=== PATIENT | male | born 1955 | race African-American/Black ===

== ENCOUNTER 2016-07-08 04:10 | Inpatient (IN) | payer OTHER ==
[~2016-07-08] VITALS: Ht 193 cm; Wt 117.7 kg
[~2016-07-08 04:10] MED LIST: ALD25 PO; ASPIR LOW81 MG PO; CLEOCIN HCL300 MG PO; COLACE100 MG PO; COREG12.5 MG PO; ECO81 PO; ENALAPRIL MALE2.5 MG PO; FLAGYL500 MG PO; FUROSEMIDE40 MG PO; LASIX40 MG PO; LEVAQUIN750 MG PO; LISINOPRIL10 MG PO; LOT1C TOP; METFORMIN HCL500 MG PO; MOTRIN800 MG PO; NORCO1 TA1 PO; OMEPRAZOLE DR20 M1 PO; SIMVASTATIN40 M1 PO; XARELTO20 M1 PO; ZOC10 PO
[2016-07-08 07:08] LABS: BASOPHIL % 0.3 % (0-2)
[2016-07-08 07:10] LABS: RED CELL DISTRIBUTION WIDTH 15.6 % (11.5-14.5)
[2016-07-08 07:11] LABS: PLATELET COUNT 87 x10^3mcL (130-400)
[2016-07-08 07:18] LABS: CALCIUM 8.7 mg/dL (8.5-10.1); CARBON DIOXIDE 26.2 mmol/L (21-32); CHLORIDE SERUM 107 mmol/L (98-107); CREATININE SERUM 1.3 mg/dL (0.7-1.3); GFR1 > 60 mL/min; GLUCOSE SERUM 173 mg/dL (74-106); POTASSIUM SERUM 4.4 mmol/L (3.5-5.1); SODIUM SERUM 141 mmol/L (136-145)
[2016-07-08 07:22] LABS: ALBUMIN 3.6 g/dL (3.4-5.0); ALKALINE PHOSPHATASE 51 U/L (46-116); ALT/SGPT 28 U/L (16-63); AST/SGOT 56 U/L (15-37); BILIRUBIN TOTAL 1.5 mg/dL (0.20-1.00); TOTAL PROTEIN, SERUM 7.4 g/dL (6.4-8.2)
[2016-07-08 08:21] LABS: CHOLESTEROL/HDL RATIO 2.6
[2016-07-08 08:22] VITALS: BP 113/82
[2016-07-08 08:22] LABS: T3 TOTAL 1.01 ng/mL
[2016-07-08 08:27] LABS: FREE T4 1.1 ng/dL (0.76-1.46); FREE THYROXINE INDEX 2.8 ug/dL (1.4-4.5); T4(THYROXINE) 8.1 ug/dL (4.7-13.3)
[2016-07-08 10:51] LABS: microscopic required? YES; urine erythrocyte NEGATIVE (NEGATIVE)
[2016-07-08 11:09] LABS: AMPHETAMINE QUAL UR NONE DETECTED (NEG <=1000)
[2016-07-08 17:56] VITALS: BP 129/89
[2016-07-08 21:46] VITALS: BP 114/82
[2016-07-09 05:48] VITALS: BP 110/73
[2016-07-09 07:16] LABS: BASOPHIL % 0.3 % (0-2)
[2016-07-09 07:18] LABS: PLATELET COUNT 80 x10^3mcL (130-400); RED CELL DISTRIBUTION WIDTH 15.9 % (11.5-14.5)
[2016-07-09 07:33] LABS: CALCIUM 8.6 mg/dL (8.5-10.1); CREATININE SERUM 1.6 mg/dL (0.7-1.3); MAGNESIUM 2.3 mg/dL (1.8-2.4); PHOSPHOROUS 3.5 mg/dL (2.5-4.9)
[2016-07-09 09:38] VITALS: BP 95/57
[2016-07-09 15:03] VITALS: BP 83/43
[2016-07-09 17:40] VITALS: BP 102/65
[2016-07-09 21:19] VITALS: BP 107/76
[2016-07-10] VITALS (7 sets, daily range): BP systolic 95–111; BP diastolic 61–83
[2016-07-10 11:03] LABS: BASOPHIL % 0.4 % (0-2)
[2016-07-10 11:12] LABS: CALCIUM 8.8 mg/dL (8.5-10.1); CARBON DIOXIDE 31.1 mmol/L (21-32); CREATININE SERUM 1.9 mg/dL (0.7-1.3); POTASSIUM SERUM 4.6 mmol/L (3.5-5.1)
[2016-07-10 11:21] LABS: PLATELET COUNT 81 x10^3mcL (130-400); RED CELL DISTRIBUTION WIDTH 15.9 % (11.5-14.5)
[2016-07-11 05:40] VITALS: BP 113/79
[2016-07-11 06:55] LABS: BASOPHIL % 0.4 % (0-2); PLATELET COUNT 79 x10^3mcL (130-400); RED CELL DISTRIBUTION WIDTH 15.5 % (11.5-14.5)
[2016-07-11 07:17] LABS: CALCIUM 8.7 mg/dL (8.5-10.1); CARBON DIOXIDE 29.1 mmol/L (21-32); CREATININE SERUM 1.9 mg/dL (0.7-1.3); POTASSIUM SERUM 5.2 mmol/L (3.5-5.1)
[2016-07-11 09:09] VITALS: BP 108/73
[2016-07-11 09:53] VITALS: BP 113/79
[2016-07-11 12:46] LABS: CALCIUM 8.5 mg/dL (8.5-10.1); CARBON DIOXIDE 26.9 mmol/L (21-32); CREATININE SERUM 1.8 mg/dL (0.7-1.3); POTASSIUM SERUM 4.7 mmol/L (3.5-5.1)
[2016-07-11 14:47] VITALS: BP 93/57
[2016-07-11 17:21] VITALS: BP 112/71
[2016-07-11 21:13] VITALS: BP 97/60
[2016-07-12 05:26] VITALS: BP 97/46
[2016-07-12 06:07] LABS: BASOPHIL % 0.5 % (0-2)
[2016-07-12 06:33] LABS: CALCIUM 8.7 mg/dL (8.5-10.1); CARBON DIOXIDE 27.3 mmol/L (21-32); CREATININE SERUM 1.8 mg/dL (0.7-1.3); POTASSIUM SERUM 4.4 mmol/L (3.5-5.1)
[2016-07-12 06:35] LABS: PLATELET COUNT 78 x10^3mcL (130-400); RED CELL DISTRIBUTION WIDTH 15.1 % (11.5-14.5)
[2016-07-12 08:31] VITALS: BP 109/71
[2016-07-12 14:47] VITALS: BP 121/81
[2016-07-12 17:40] VITALS: BP 122/76
[2016-07-12 20:57] VITALS: BP 107/62
[2016-07-13 05:19] VITALS: BP 104/66
[2016-07-13 06:28] LABS: CALCIUM 8.9 mg/dL (8.5-10.1); CARBON DIOXIDE 29.5 mmol/L (21-32); CREATININE SERUM 1.7 mg/dL (0.7-1.3); POTASSIUM SERUM 4.9 mmol/L (3.5-5.1)
[2016-07-13 06:50] LABS: BASOPHIL % 0.7 % (0-2); PLATELET COUNT 80 x10^3mcL (130-400); RED CELL DISTRIBUTION WIDTH 15.4 % (11.5-14.5)
[2016-07-13 09:32] VITALS: BP 105/69
[2016-07-13] MEDS ORDERED: XARELTO20 M1 PO (12:05)
[2016-07-13] MEDS ORDERED: LASIX40 MG PO (12:07)
[2016-07-13] MEDS ORDERED: ALD25 PO (12:07)
[2016-07-13] MEDS ORDERED: CLINDAMYCIN HC300 MG PO (12:12)
[2016-07-13] MEDS ORDERED: LEVAQUIN750 MG PO (12:12)
[2016-07-13] MEDS ORDERED: LAC PO (12:12)
[2016-07-13] MEDS ORDERED: IBUPROFEN800 MG PO (12:18)
[2016-07-13] MEDS ORDERED: OMEPRAZOLE20 M4 PO (12:18)
[2016-07-13] MEDS ORDERED: GLU5 PO (12:28)
[2016-07-13] MEDS ORDERED: ECO81 PO (12:35)
[2016-07-13] MEDS ORDERED: SIMVASTATIN40 M1 PO (12:35)
[2016-07-13 13:39] VITALS: BP 105/69
[2016-07-13] MEDS ORDERED: FOL1 PO (13:42)
[2016-07-13] MEDS ORDERED: LEADER NATURA500 MCG PO (13:42)
== END 2016-07-13 16:27 | disposition home or self-care (01) | DRG 226 ==
LOC: ED 04:10 → DU 06:41
PROVIDERS: Emergency Medicine; Internal Medicine Clinical Cardiac Electrophysiology; ADMIT Family Medicine
PROC: 0HQ1XZZ Repair Face Skin, External Approach (ICD-10-PCS; 2016-07-08)
PROC: 0JH608Z Insertion of Defibrillator Generator into Chest Subcutaneous Tissue and Fascia, Open Approach (ICD-10-PCS; principal; 2016-07-10 17:00)
PROC: 02HK3KZ Insertion of Defibrillator Lead into Right Ventricle, Percutaneous Approach (ICD-10-PCS; principal; 2016-07-10 17:00)
DX: I11.0 Hypertensive heart disease with heart failure (principal); J69.0 Pneumonitis due to inhalation of food and vomit; J96.01 Acute respiratory failure with hypoxia; N17.0 Acute kidney failure with tubular necrosis; S02.612A Fracture of condylar process of left mandible, initial encounter for closed fracture; I50.43 Acute on chronic combined systolic (congestive) and diastolic (congestive) heart failure; I42.0 Dilated cardiomyopathy; R55 Syncope and collapse; S01.81XA Laceration without foreign body of other part of head, initial encounter; E86.0 Dehydration; E11.65 Type 2 diabetes mellitus with hyperglycemia; E11.51 Type 2 diabetes mellitus with diabetic peripheral angiopathy without gangrene; D53.9 Nutritional anemia, unspecified; Z59.0 Homelessness; Z91.19 Patient's noncompliance with other medical treatment and regimen; Z68.31 Body mass index [BMI] 31.0-31.9, adult; Z79.84 Long term (current) use of oral hypoglycemic drugs; Z86.718 Personal history of other venous thrombosis and embolism; Z79.01 Long term (current) use of anticoagulants; Z95.828 Presence of other vascular implants and grafts; Z86.73 Personal history of transient ischemic attack (TIA), and cerebral infarction without residual deficits; W18.30XA Fall on same level, unspecified, initial encounter; Y92.29 Other specified public building as the place of occurrence of the external cause
CPT/HCPCS: 76001; 83880; 84439; 94150; 97530-GP; C1721; J1644; J1940; J2001; J2250; J2270; J2405; J2543; J3010; J3370; J3490; J7030; J7040; J7050; J7620; Q0092; Q9967

== ENCOUNTER 2016-09-19 11:44 | Observation (INO) | payer OTHER ==
[~2016-09-19] VITALS: Ht 193 cm; Wt 122.5 kg
[~2016-09-19 11:44] MED LIST changes: +CLINDAMYCIN HC300 MG PO; +FOL1 PO; +GLU5 PO; +IBUPROFEN800 MG PO; +LAC PO; +LEADER NATURA500 MCG PO; +OMEPRAZOLE20 M4 PO
--- NOTE | 2016-09-19 12:07 | NUR ---
PT BIB [facility] WITH C/C OF LLE PAIN AND SORES X2 TO LLE. PT IS AAOX4, ANSWERS QUESTIONS APPROPRIATELY AND FOLLOWS COMMANDS. C/O SOB WITH HX OF CHF. RESP EVEN AND UNLABORED, RA. FINE CRACKLES FRANCINE TO TIMOTHY LOWER BASES. DENIES CHEST PAIN.. DENIES ABD PAIN, N/V/D. DENIES UTI SYMPTOMS. PT PRESENTS WITH OPEN SORES X2 TO LLE. ONE APPROX 5IN X 3IN TO LEFT ANT LOWER EXT AND THE OTHER APPROX 2IN X 2IN TO LEFT POSTERIOR ASPECT OF LOWER LEFT EXT. PER EMS: BLOOD SUGAR WAS 153. PT PLACED ON SUPERVISOR RIVETING AND PULSE OX
--- NOTE | 2016-09-19 12:15 | NUR ---
EKG COMPLETED BY EMT
--- NOTE | 2016-09-19 12:20 | NUR ---
ON LINE CSR AT BEDSIDE FOR BLOOD DRAW
[2016-09-19 12:35] LABS: BASOPHIL % 0.6 % (0-2)
[2016-09-19 12:45] LABS: PLATELET COUNT 106 x10^3mcL (130-400); RED CELL DISTRIBUTION WIDTH 15.5 % (11.5-14.5)
[2016-09-19 12:46] LABS: CALCIUM 8.3 mg/dL (8.5-10.1); CARBON DIOXIDE 26.9 mmol/L (21-32); CREATININE SERUM 1.6 mg/dL (0.7-1.3); POTASSIUM SERUM 4.9 mmol/L (3.5-5.1)
[2016-09-19 12:52] LABS: BILIRUBIN TOTAL 1.65 mg/dL (0.20-1.00); TOTAL PROTEIN, SERUM 7.4 g/dL (6.4-8.2)
[2016-09-19 12:54] LABS: ALBUMIN 3.2 g/dL (3.4-5.0)
--- NOTE | 2016-09-19 12:54 | NUR ---
WOUND CULTURE OBTAINED AND SENT TO LAB
--- NOTE | 2016-09-19 12:58 | NUR ---
RADIOLOGY AT BEDSIDE FOR PCXR
--- NOTE | 2016-09-19 13:08 | NUR ---
PT MADE AWARE OF NEED TO COLLECT URINE. PT VERBALIZED UNDERSTANDING. URINAL LEFT AT BEDSIDE
--- NOTE | 2016-09-19 13:57 | NUR ---
REPORT GIVEN TO MONIKA BIGGS. PT REMAINS IN STABLE CONDITION. RESP EVEN AND UNLABORED, RA. VS STABLE. AWAITING ADMISSION ORDERS
--- NOTE | 2016-09-19 14:26 | NUR ---
AWAITING ADMIT ORDERS
--- NOTE | 2016-09-19 14:27 | NUR ---
PAT DIRECTOR OF PATIENT FINANCIAL SERVICES TO TEXT FOR ADMIT ORDERS
--- NOTE | 2016-09-19 14:41 | NUR ---
PT IN STABLE CONDITION AND AWATING ADMIT ORDERS
--- NOTE | 2016-09-19 14:44 | NUR ---
SPOKE WITH RESIDENT GEOTECHNICAL DEPARTMENT MANAGER DR. VIRK REGARDING ADMIT ORDERS, HE REPORTS HE WILL FOLLOW UP WITH RESIDENT PLACING ORDERS
[2016-09-19 15:00] VITALS: BP 97/73
--- NOTE | 2016-09-19 15:00 | NUR ---
PATIENT RECEIVED AT THIS TIME VIA GUERNEY FROM ER. PATIENT ABLE TO AMBULATE FROM HALLWAY TO BED INDEPENDENTLY. PATIENT STATES IT IS PAINFUL TO WALK ON LLE DUE TO WOUND ON ANTERIOR ANKLE/POSTERIOR CALF TO LLE. WEAKNESS TO LLE, DENIES USE OF AMBULATORY ASSISTIVE DEVICE. PATIENT IS AWAKE, ALERT, ORIENTED X3, BUT FORGETFUL. UNABLE TO RECALL WHEN HE HAD HIS PACEMAKER PLACED OR WHEN HIS LEG PAIN/WOUND HAPPENED. PLACED ON TELE# 1, HR 64, BP 97/73, SPO2 97% ON ROOM AIR. IV TO LAC SALINE LOCKED AND WNL, PACE MAKER TO LEFT UPPER CHEST, SKIN CLEAN, DRY, AND INTACT. WOUNDS X2 TO LEFT ANTERIOR ANKLE/LEFT POSTERIOR CALF WITH SMALL AMOUNT OF SEROSANGUINEOUS DRAINAGE NOTED, NO ODOR NOTED, RED, THERAHONEY DRESSING APPLIED WITH ISLAND DRESSING, PHOTOS TAKEN AND PLACED IN CHART. ALL SAFETY MEASURES REVIEWED AND IN PLACE, CALL LIGHT IN HAND, WILL ENDORSE CARE TO [employer].
[2016-09-19 15:18] LABS: FREE T4 1.32 ng/dL (0.76-1.46); FREE THYROXINE INDEX 3.4 ug/dL (1.4-4.5); T4(THYROXINE) 8.6 ug/dL (4.7-13.3)
[2016-09-19 15:24] LABS: T3 TOTAL 0.73 ng/mL
[2016-09-19 15:34] LABS: MAGNESIUM 2.2 mg/dL (1.8-2.4); PHOSPHOROUS 3.5 mg/dL (2.5-4.9)
[2016-09-19 15:38] LABS: CHOLESTEROL/HDL RATIO 2.3
--- NOTE | 2016-09-19 16:03 | NUR ---
PT RECEIVED. AT THIS TIME THE PATIENT IS RESTING IN BED. DR IS AT BEDSIDE ASSESSING THE PATIENT AT THIS MOMENT. PATIENT DOES NOT APPEAR IN ACUTE DISTRESS. PT RESPIRATIONS ARE EVEN AND UNLABORED. PATIENT HAS TELE MONITOR [address] IV INFUSING. SCDS PRESENT. ALL SAFETY PRECAUTIONS ARE IN PLACE. WILL CONTINUE TO MONITOR.
[2016-09-19 17:03] VITALS: BP 127/87
--- NOTE | 2016-09-19 19:20 | NUR ---
REC'D PT FROM DAY NURSE. PT RESTING IN BED WITH EYES CLOSED. AAOX4, SPEECH CLEAR, FOLLOWS COMMANDS, SLEEPY. ON TELE 1. DENIES CP, DIZZINESS, OR PALPITATIONS. DENIES RESP DISTRESS OR SOB. BREATHING EVEN/UNLABORED ON RA. WEAK PEDAL PULSES. EDEMA TO BLE WITH SKIN "SHRIVELING." DENIES PAIN OR TINGLING TO EXTREMITIES. DENIES ABD PAIN, TENDERNESS OR N/V. STATES HE DOES NOT REMEMBER WHEN HE LAST HAD A BM BUT IT WAS REGULAR. BOWEL SOUNDS ACTIVE. DENIES PAIN AT THIS TIME. REPORTS PAIN TO LLE WITH AMBULATION. VOIDING FREELY WITHOUT DYSURIA, UA TO BE COLLECTED. WOUNDS X2 TO LLE COVERED WITH ISLAND DRESSINGS. MODERATE SANGUINEOUS DRAINAGE TO BOTH, WILL CHANGE. NS @ 100 ML/HR, BNP 1622. WILL ASK RESIDENT IF HE WOULD LIKE TO KEEP IT AT THIS RATE. CALL LIGHT WITHIN REACH, BED AT LOWEST POSITION. WILL CONTINUE TO MONITOR.
--- NOTE | 2016-09-19 19:20 | NUR ---
PT HAS BEEN ENDORSED TO NEXT SHIFT. PT IS CURRENTLY RESTING IN BED. DENIES PAIN. PT IS IN NO ACUTE DISTRESS. ALL SAFETY PRECAUTIONS IN PLACE.
--- NOTE | 2016-09-19 20:04 | NUR ---
IVF REDUCED TO 10 ML/HR PER ORDER.
[2016-09-19 21:07] VITALS: BP 102/69
--- NOTE | 2016-09-19 21:19 | NUR ---
DRESSINGS CHANGED X2 TO LLE. THERAHONEY APPLIED WITH GAUZE AND ISLAND DRESSING. MOD PURULENT AND SEROSANGUINEOUS DRAINAGE. ASSISTED PT TO CHAIR. SLOW AND UNSTEADY GAIT. TRANSFERRED TO ELONGATED BED. PT BECAME SOB, SPO2 92% ON RA. APPLIED 2L O2 VIA NC FOR COMFORT, SPO2 99%. MADE COMFORTABLE IN BED. LLE ELEVATED WITH PILLOWS. LAYING SUPINE AT SEMIFOLWERS POSITION. CALL LIGHT WITHIN REACH, BED AT LOWEST POSITION. WILL CONTINUE TO MONITOR.
[2016-09-20] VITALS (7 sets, daily range): BP systolic 94–1074; BP diastolic 59–72
--- NOTE | 2016-09-20 01:55 | NUR ---
PT RESTING IN BED WITH EYES CLOSED. NO SIGNS OF DISTRESS NOTED. BREATHING EVEN/UNLABORED ON 2L O2 VIA NC. BLE ELEVATED WITH PILLOWS. CALL LIGHT WITHIN REACH, BED AT LOWEST POSITION. WILL CONTINUE TO MONITOR.
--- NOTE | 2016-09-20 06:10 | NUR ---
PT RESTING IN BED WITH EYES CLOSED. BLE ELEVATED WITH PILLOWS. DRESSINGS TO WOUNDS WITH LARGE AMOUNT OF PURULENT AND SEROSANGUINEOUS DRAINAGE. CHANGED DRESSINGS- IRRIGATED WITH NS, APPLIED THERAHONEY AND GAUZE THEN COVERED WITH LARGE ISLAND DRESSINGS. DENIES PAIN AT THIS TIME. DENIES SOB BUT WOULD LIKE TO KEEP THE NC 2L ON FOR COMFORT. SLEPT THROUGHOUT MOST OF THE NIGHT. HAD A FEW EPISODES OF BIGEMINY DURING SLEEP, DR. SHAFFER AWARE. DID NOT VOID, UA STILL TO BE COLLECTED. CALL LIGHT WITHIN REACH, BED AT LOWEST POSITION. WILL ENDORSE TO DAY NURSE.
[2016-09-20 06:23] LABS: BASOPHIL % 0.6 % (0-2)
[2016-09-20 06:28] LABS: PLATELET COUNT 104 x10^3mcL (130-400); RED CELL DISTRIBUTION WIDTH 15.4 % (11.5-14.5)
[2016-09-20 06:54] LABS: CALCIUM 7.9 mg/dL (8.5-10.1); CARBON DIOXIDE 24.1 mmol/L (21-32); CREATININE SERUM 1.4 mg/dL (0.7-1.3); MAGNESIUM 2.2 mg/dL (1.8-2.4); PHOSPHOROUS 3.4 mg/dL (2.5-4.9); POTASSIUM SERUM 4.8 mmol/L (3.5-5.1)
--- NOTE | 2016-09-20 07:15 | NUR ---
PT RECEIVED. AT THIS TIME THE PATIENT IS RESTING IN BED COMFORTABLY. IV IS RUNNING. SCDS ARE IN PLACE. TELE MONITOR [address] ALL SAFETY MEASURES ARE IN PLACE. PT DENIES ANY PAIN AT THIS TIME. PT DOES NOT SHOW SIGNS OF DISTRESS. PATIENT DRESSINGS ARE CLEAN AND INTACT AT THIS TIME. WILL CONTINUE TO MONITOR.
--- NOTE | 2016-09-20 09:17 | NUR ---
DR. BECKWITH, THE RESIDENTS, CHARGE NURSE, AND ATTENDING NURSE AT BEDSIDE. CAREPLAN DISCUSSED WITH PT. ALL QUESTIONS ANSWERED.
--- NOTE | 2016-09-20 09:57 | NUR ---
URINE COLLECTED AND SENT TO LAB FOR UA, URINE C/S, AND UDS.
[2016-09-20 10:48] LABS: UA SPECIFIC GRAVITY >=1.030 (1.005-1.035); microscopic required? YES; urine erythrocyte NEGATIVE (NEGATIVE)
[2016-09-20 11:19] LABS: AMPHETAMINE QUAL UR NONE DETECTED (NEG <=1000)
--- NOTE | 2016-09-20 14:00 | NUR ---
CLEANSED WOUND #1 TO ANTERIOR ASPECT OF LLE WITH NORMAL SALINE. THERAHONEY CREAM APPLIED TO WOUND BEFORE COVERING WITH COMPOSITE ISLAND DRESSING. WOUND MEASURED 9 X 5 X 0.1 CM (L X W X D). MODERATE AMOUNT OF PINK DRAINAGE NOTED AT WOUND SITE. CLEANSED WOUND #2 TO POSTERIOR ASPECT OF LLE WITH NORMAL SALINE. THERAHONEY CREAM APPLIED TO WOUND BEFORE COVERING WITH COMPOSITE ISLAND DRESSING. WOUND MEASURED 10 X 5 X 0.1 CM (L X W XD). LIGHT AMOUNT OF PINK DRAINAGE NOTED AT WOUND SITE. PT TOLERATED WELL. NO C/O PAIN.
--- NOTE | 2016-09-20 15:09 | NUR ---
Initial Nutrition Assessment Dx: cellulitis PMHx: Hypertension, diabetes, DVT status post filter placement, pacemaker, CVA x3, CHF, hernia repair, thrombocytopenia, and anxiety PSHx: DVT s/p filter placement, abdominal hearnia, Labs: (09/20) B< Cr:1.4H, H/H:12.2/38L (09/19) A1c:7H, Meds: Colace, D50, Folic acid, Glucotrol, Humulin, Lasix, Prilosec, NS IVF, Theragran-M, B12, Vit C, Zinc, Zofran. Diet:CCHO PO Intake:No intake recorded. (09/20) B:100% per pt. Ht: 76in,6'4 Wt: 270#, 122.52kg BMI:32.9kg/m2 (obesity, class I) IBW: 202#,92kg %IBW: 134% UBW:270#, per pt Age:61 Food Allergies:None Skin:cellulitis. Wound x2 to LLE. Mitch: 17 Edema:pitting edema BLE> GI:bowel sounds active. Last BM: pt states he does not know his last BM, but it was regualr, per shift assesment note 09/20. Nursing Trigger: poor PO intake>3days. Pt admitted with E cellulitis 2/2 venous ulcer, per MD note 09/19. Per progress not 09/20, pt with no c/o pain or discomfort and was made aware that he will be having an ultrasound test of his lower extremities. During visit, observed pt had eaten 100% of his lunch. Pt reports good appetite with no c/o N/V/D/C. Problem with: N: No V: No D: No C:No Problems with: Chewing:No Swallowing:No Current appetite: good Recent wt change:No %wt change:0% Vitamin/Supplement use:No Special diet at home:No, pt is homeless and eats whatever good he can get. Physical activity:no Education: Pt declined diabetic diet education. Estimated Nutritional Needs Based on ideal body weight 92kg Energy: 2300-2760kcal/d (25-30kcal for venous ulcer) Protein: 110-138g/d (1.2-1.5g/kg for wound healing/venous ulcer) Fluid: 2300-2760ml/d (1 ml/kcal) or per doctor Nutrition Diagnosis 1. Increased nutrient needs realted to altered skin integrity as evidenced by pt with venous ulcer. 2. Altered nutrition labs related to endocrine dysfunction as evidenced with elevated A1c:7. Intervention 1.Recommend CCHO 75g and high protein diet to better meet pts est needs. Monitor/Evaluate Goal: PO intake at least 75% of estimated needs Monitor: PO intake, Labs, GI function F/U in 3-5 days as moderate risk:09/23-
--- NOTE | 2016-09-20 17:30 | NUR ---
BLOOD SUGAR= 60; 240CC ORANGE JUICE GIVEN.
--- NOTE | 2016-09-20 18:30 | NUR ---
BLOOD SUGAR RECHECKED; BS= 82.
--- NOTE | 2016-09-20 18:37 | NUR ---
PT IS RESTING IN BED AT THE MOMENT WATCHING TV. PT SHOWS NO SIGNS OF ACUTE DISTRESS. DENIES PAIN IN HIS LEGS. RESPIRATIONS ARE EVEN AND UNLABORED ON ROOM AIR. PT HAS TWO DRESSINGS ON ANTERIOR ASPECT AND POSTERIOR ASPECT OF LEFT CALF. DRESSINGS ARE CLEAN AND INTACT. IV IN LAC IS INFUSING AT 10/ML/HR. TELE MONITOR [address] WILL ENDORSE PATIENT TO NIGHT NURSE AT SHIFT CHANGE AND CONTINUE TO MONITOR.
--- NOTE | 2016-09-20 19:50 | NUR ---
RECEIVED REPORT FROM DAY SHIFT RN. PT SITTING UP IN BED. NO C/O PAIN. IV ON LAC, NS INFUSING. DRESSING TO LLE X2, CDI. INSTRUCTED PT TO CALL IF ASSISTANCE IS NEEDED. CALL LIGHT WITHIN REACH.
--- NOTE | 2016-09-21 05:37 | NUR ---
PT SLEPT THROUGHOUT MOST OF THE NIGHT. NO C/O PAIN. NO SOB ON ROOM AIR. NO DISTRESS NOTED. SAFETY MEASURES MAINTAINED. CALL LIGHT WITHIN REACH.
[2016-09-21 05:52] VITALS: BP 93/66
[2016-09-21 06:05] LABS: BASOPHIL % 0.4 % (0-2)
[2016-09-21 06:29] LABS: CALCIUM 8.3 mg/dL (8.5-10.1); CARBON DIOXIDE 26.6 mmol/L (21-32); CREATININE SERUM 1.4 mg/dL (0.7-1.3); MAGNESIUM 2.3 mg/dL (1.8-2.4); PHOSPHOROUS 3.1 mg/dL (2.5-4.9); POTASSIUM SERUM 4.6 mmol/L (3.5-5.1)
--- NOTE | 2016-09-21 06:37 | NUR ---
DRESSINGS TO LLE CHANGED X1. ASSISTED PT TO CHAIR THEN BACK TO BED. SLOW UNSTEADY GAIT. NO SOB. O2 SAT 97% ON ROOM AIR. NO C/O PAIN. NO DISTRESS NOTED. WILL ENDORSE CONTINUITY OF CARE TO ONCOMING RN.
[2016-09-21 06:38] LABS: PLATELET COUNT 113 x10^3mcL (130-400); RED CELL DISTRIBUTION WIDTH 15.7 % (11.5-14.5)
--- NOTE | 2016-09-21 07:35 | NUR ---
RECEIVED PATIENT AWAKE/ALERT IN BED, DENIES PAIN. IV INTACT AND INFUSING. BLE EDEMA W/ DRIED SCALY SKIN NOTED, LLE DRESSING X 2 C/D/I NOTED. POC EXPLAINED. CONT TO MONITOR. RE-INFORCED PATIENT PER HOSPITAL PROTOCOL BED NEED TO BE LOW IN POSITION.
--- NOTE | 2016-09-21 09:48 | NUR ---
PATIENT ASLEEP AROUSABLE, NO COMPLAINT. ALL DUE MEDS GIVEN. NEEDS ANTICIPATED.
[2016-09-21 09:54] VITALS: BP 108/57
--- NOTE | 2016-09-21 11:53 | NUR ---
PATIENT AWAKE IN BED NO COMPLAINTS, BS 86 NO COVERAGE NEEDED, UNASYN D/C AND NEW ORDER FOR ROCEPHIN; ORDER CARRY OUT.
--- NOTE | 2016-09-21 13:05 | NUR ---
PATIENT SIT UP IN BED NO DISTRESS NOTED, ROCEPHIN 1 GM IVPB GIVEN ORDERED TO LAC.
[2016-09-21 13:07] VITALS: BP 100/73
--- NOTE | 2016-09-21 14:55 | NUR ---
PATIENT RESTING IN BED NO COMPLAINTS, CONT TO MONITOR.
--- NOTE | 2016-09-21 16:25 | NUR ---
PATIENT REMAIN RESTING IN BED NO ACUTE DISTRESS NOTED, DR SERNA PERFORM DEBRIDEMENT AT THIS TIME, NOTED PATIENT IN PAIN OFFERED PAIN MED PATIENT REFUSDE, CHECK BS 76 NO COVERAGE NEEDED. CONT TO MONITOR.
[2016-09-21 17:15] VITALS: BP 115/83
--- NOTE | 2016-09-21 17:19 | NUR ---
PATIENT RESTING IN BED NO COMPLAINTS AFTER POST DEBRIDEMENT; LLE DRESSING WITH GAUZES AND TAPE; MOD SEROUSANG NOTED. WILL REINFORCED WITH KERLIX. PATIENT TOLERATED WELL. DUE MEDS GIVEN. NEEDS ANTICIPATED.
--- NOTE | 2016-09-21 18:45 | NUR ---
PATIENT SIT AT THIS SIDE OF BED NO COMPLAINTS. NEEDS ANTICIPATED.
--- NOTE | 2016-09-21 19:30 | NUR ---
PT A/O X4. TELE #1, NSR AT 89, DENIES CHEST PAIN AT THIS TIME. WEAK PULSES PALPABLE, 1+ EDEMA NOTED TO BLE. PT ON XARELTO PO. DIMINISHED LUNG SOUNDS AUSCULTATED TO TIMOTHY BASES, PT BREATHING FREELY ON RA, DENIES SOB. ABD IS SOFT AND ROUND, REPORTS LAST BM WAS TODAY, FORMED. BOWEL SOUNDS ACTIVE. PT REPORTS VOIDING USING A URINAL OR WALKING TO BATHROOM. WEAKNESS TO LLE. PT IS S/P DEBRIDEMENT TO LLE. DRESSING TO LLE HAS SOME BLOODY SATURATION NOTED TO IT. WILL REINFORCE WITH GAUZE AND KERLIX. PT DENIES PAIN AT THIS TIME. PT ACCIDENTALLY PULLED OUT HIS IV WHEN AMBULATING TO BATHROOM. NEW IV INSERTED BY RESOURCE NURSE TO RFA, 22G. IVF INFUSING WELL TO RFA, NS @ 10 ML/HR. BED IN LOWEST SETTING, SIDE RAILS UP X2, CALL LIGHT WITHIN REACH. WILL CONTINUE TO MONITOR.
--- NOTE | 2016-09-21 20:30 | NUR ---
BLOODY SATURATION NOTED TO LLE. REINFORCED PT'S DRESSING TO LLE WITH GAUZE AND KERLIX. PT TOLERATED WELL, DENIES PAIN AT THIS TIME.
[2016-09-21 21:37] VITALS: BP 105/66
--- NOTE | 2016-09-22 05:30 | NUR ---
PT ACCIDENTALLY PULLED OUT IV, CATHETER INTACT. NEW IV INSERTED TO LFA, 22 G, PATENT AND INTACT. PT TOLERATED WELL. PT'S DRESSING TO DEBRIDEMENT SITE WAS SATURATED WITH SEROUSANGUINOUS DRAINAGE. NEW DRESSING APPLIED. PT DENIES PAIN AT THIS TIME.
[2016-09-22 06:28] VITALS: BP 95/68
[2016-09-22 06:35] LABS: BASOPHIL % 0.9 % (0-2)
[2016-09-22 06:58] LABS: PLATELET COUNT 107 x10^3mcL (130-400); RED CELL DISTRIBUTION WIDTH 15.4 % (11.5-14.5)
[2016-09-22 07:14] LABS: CALCIUM 8.3 mg/dL (8.5-10.1); CARBON DIOXIDE 23.9 mmol/L (21-32); CHLORIDE SERUM 108 mmol/L (98-107); CREATININE SERUM 1.3 mg/dL (0.7-1.3); GFR1 > 60 mL/min; GLUCOSE SERUM 100 mg/dL (74-106); MAGNESIUM 2.3 mg/dL (1.8-2.4); PHOSPHOROUS 3.5 mg/dL (2.5-4.9); POTASSIUM SERUM 4.9 mmol/L (3.5-5.1); SODIUM SERUM 142 mmol/L (136-145)
--- NOTE | 2016-09-22 08:00 | NUR ---
PT AWAKE AND ALERT. TEMP 97.6. TELE #1 SINUS RHYTHM WITH FIRST DEGREE BLOCK, OCCASIONAL PVC, RATE 86, BP=96/69. PACEMAKER NOTED TO CHEST. DENIES CHEST DISCOMFORT. WILL HOLD BP MEDS. RESP 18 EVEN. BREATH SOUNDS DIMINISHED. NO COUGH OR SOB. PULSE OX 95% RA. ABD SOFT, BOWEL TONES PRESENT. LBM=8-11-17. VOIDING QS. DRESSING CDI TO LLE. ELEVATED ON TWO PILLOWS. SKIN TO LOWER LEGS BILATERAL ROUGH. NO DRAINAGE NOTED. DENIES NUMBNESS OR TINGLING. PULSES WEAK. TRACE EDEMA NOTED. IV PATENT LFA INFUSING NORMAL SALINE 10CC/HR. ON IV ROCEPHIN DAILY. DENIES PAIN. SIDE RAILS UP X2. CALL LIGHT IN REACH.
--- NOTE | 2016-09-22 09:40 | NUR ---
DR OLIVER AND MEDICAL TEAM IN ON ROUNDS. CHARGE AND PRIMARY NURSE PRESENT. DISCUSSED PLAN OF CARE. FOR TRANSFER TO REHAB FACILITY TODAY FOR CONTINUED WOUND CARE. DR OLIVER UPDATED WITH PT BP READING 96/69. CARDIAC MEDS HELD. NO FURTHER ORDERS AT THIS TIME.
[2016-09-22 10:02] VITALS: BP 93/56
--- NOTE | 2016-09-22 11:45 | NUR ---
BKO=[id number]. CONTINUES TO DENY PAIN. IV CONTINUES PATENT. CALL LIGHT IN REACH.
--- NOTE | 2016-09-22 13:20 | NUR ---
SPOKE WITH [facility]NA[employer]. PT TO TRANSFER TO [facility] FOR CONTINUED WOUND CARE AND IV THERAPY. PT AWARE AND IN AGREEMENT. IV CONTINUES PATENT. CALL LIGHT IN REACH.
[2016-09-22] MEDS ORDERED: ROC1I IM ×2 (13:32→13:50)
[2016-09-22 13:48] VITALS: BP 96/69
--- NOTE | 2016-09-22 14:00 | NUR ---
DRESSING REMOVED FROM LLE. SITES TO ANTERIOR AND POSTERIOR ASPECT LLE CLEASED WITH NORMAL SALINE. DC PHOTOS TAKEN. THERAHONEY APPLIED TO WOUND BEDS. COVERED WITH 4X4 AND ABD. SECURED WITH PAPER TAPE. WRAPPED WITH 6" PATRICIO. SECURED WITH TAPE. COVERED WITH LARGE STOCKINET TO KEEP DRESSING IN PLACE. PT TOLERATED WELL. DC INFORMATION REVIEWED WITH PT. FORMS SIGNED. INFORMED PT OF MINILAB OPERATOR TIME 1600. CALL FROM [employer] [facility] CASE [employer]NAG[employer] THAT PLACER MINER FROM [facility] WITH MAKE ARRANGEMENTS TO GET PTS BELONGINGS FROM [facility]. PT MADE AWARE. IV SITE PATENT. CONVERTED TO SALINE LOCK. PT ABLE TO GET SELF DRESSED.
--- NOTE | 2016-09-22 14:03 | NUR ---
REPORT CALLED TO STANISLAW AT [facility]. PT TO BE TRANSFERRED THIS AFTERNOON.
[2016-09-22 14:10] VITALS: BP 108/74
[2016-09-22] MEDS ORDERED: ROC1PM IV (16:07)
[2016-09-22] MEDS ORDERED: LAC PO (16:08)
--- NOTE | 2016-09-22 16:30 | NUR ---
YNU=[id number]. NO RISS COVERAGE. BART ON ITS WAY TO HEALTH INFORMATION ADMINISTRATOR PT. XARELTO 20MG PO GIVEN ORDERED. SALINE LOCK INTACT. DRESSING CDI TO LLE. PT AMBULATES WELL. DENIES PAIN.
--- NOTE | 2016-09-22 16:40 | NUR ---
[facility] HERE. REPORT GIVEN. PTS [place] REMOVED. DC WITH [facility] AT THIS TIME WITH BELONGINGS. HAS GLASSES WITH HIM.
== END 2016-09-22 16:55 | DRG 264 ==
LOC: ED 11:44 → DU 13:13
PROVIDERS: Emergency Medicine; ADMIT Family Medicine
PROC: 0HBLXZZ Excision of Left Lower Leg Skin, External Approach (ICD-10-PCS; principal; 2016-09-21)
DX: I83.222 Varicose veins of left lower extremity with both ulcer of calf and inflammation (principal); L97.229 Non-pressure chronic ulcer of left calf with unspecified severity; L03.116 Cellulitis of left lower limb; B96.89 Other specified bacterial agents as the cause of diseases classified elsewhere; E11.9 Type 2 diabetes mellitus without complications; I10 Essential (primary) hypertension; K21.9 Gastro-esophageal reflux disease without esophagitis; E78.5 Hyperlipidemia, unspecified; F41.9 Anxiety disorder, unspecified; Z59.0 Homelessness; Z68.32 Body mass index [BMI] 32.0-32.9, adult; Z95.0 Presence of cardiac pacemaker; Z86.73 Personal history of transient ischemic attack (TIA), and cerebral infarction without residual deficits; Z86.718 Personal history of other venous thrombosis and embolism; Z79.01 Long term (current) use of anticoagulants; Z79.84 Long term (current) use of oral hypoglycemic drugs; Z16.11 Resistance to penicillins
CPT/HCPCS: 83880; 84439; G0378; G0480; J0295; J0696; J2001; J3490; J7030; Q0092

== ENCOUNTER 2017-01-05 21:45 | Inpatient (IN) | payer OTHER ==
[~2017-01-05] VITALS: Ht 198.1 cm; Wt 122.0 kg
[~2017-01-05 21:45] MED LIST changes: +ROC1I IM; +ROC1PM IV
--- NOTE | 2017-01-05 22:03 | NUR ---
PT BIBA WITH C/O PALPITATIONS X 3 DAYS AND SOB WITH EXERTION. PT REPORTS EXTENSIVE MEDICAL HX, BUT REPORTS HE HAS NOT TAKEN PRESCRIBED MEDICATIONS X 1 MONTH. PT STATES "THEY TAKE AWAY MY APPETITE" HIS REASON FOR NOT TAKING THEM. PT NOTICED AN INCREASE IN PEDAL EDEMA X 3 DAYS. UPON ASSESSMENT PTS LUNG SOUNDS CLEAR TIMOTHY, RESP E/U, NO DISTRESS NOTED. PT HAS TIMOTHY PEDAL PULSES THAT ARE NORMAL, NOT BOUNDING. PT REPORTS DEC MOBILITY D/T SWELLING. PT CHANGED INTO GOWN, CONNECTED TO CARDIORESP MONITORS, DR GAGNON AT BEDSIDE FOR MSE.
[2017-01-05] MEDS ORDERED: POTASSIUM CHLO10 MEQ PO (22:10)
[2017-01-05] MEDS ORDERED: CARVEDILOL12.5 M1 PO (22:10)
[2017-01-05] MEDS ORDERED: METFORMIN HYDR500 M1 PO (22:10)
[2017-01-05] MEDS ORDERED: LISINOPRIL10 MG PO (22:11)
[2017-01-05] MEDS ORDERED: SIMVASTATIN40 M1 PO (22:11)
[2017-01-05] MEDS ORDERED: FUROSEMIDE40 MG PO (22:11)
[2017-01-05 22:25] LABS: BASOPHIL % 1.3 % (0-2)
[2017-01-05 22:26] LABS: PLATELET COUNT 96 x10^3mcL (130-400); RED CELL DISTRIBUTION WIDTH 18.4 % (11.5-14.5)
[2017-01-05 22:37] LABS: CALCIUM 9.1 mg/dL (8.5-10.1); CARBON DIOXIDE 26.4 mmol/L (21-32); CREATININE SERUM 1.7 mg/dL (0.7-1.3); POTASSIUM SERUM 4.8 mmol/L (3.5-5.1)
[2017-01-05 22:40] LABS: ALBUMIN 3.8 g/dL (3.4-5.0); BILIRUBIN TOTAL 2.61 mg/dL (0.20-1.00); TOTAL PROTEIN, SERUM 8.1 g/dL (6.4-8.2)
--- NOTE | 2017-01-05 23:36 | NUR ---
REPORT CALLED TO RADHA DUTTON TO ASSUME CARE OF PT POST TRANSFER TO TELE UNIT.
[2017-01-06 00:04] LABS: MAGNESIUM 2.5 mg/dL (1.8-2.4); PHOSPHOROUS 4.1 mg/dL (2.5-4.9)
[2017-01-06 00:06] LABS: CHOLESTEROL/HDL RATIO 2.8
[2017-01-06 00:10] LABS: T3 TOTAL 0.81 ng/mL
[2017-01-06 00:14] VITALS: BP 116/72
--- NOTE | 2017-01-06 00:23 | NUR ---
RECEIVED PATIENT FROM ED VIA GUERNEY, PATIENT ALERT AND ORIENTED, TELE # 4 SR, IV ACCESS TO LAC WNL, NO C/O PAIN AT THIS TIME, PATIENT WITH SWELLING NON PITTING EDEMA TO BLE, ORIENTED PATIENT TO ROOM AND SURROUNDINGS, BED IN LOW POSITION, BED RAILS UP X 2, CALL LIGHT WITHIN REACH, WILL ENDORSE CARE TO PRIMARY NURSE RADHA DUTTON
[2017-01-06 00:27] LABS: FREE T4 1.39 ng/dL (0.76-1.46); FREE THYROXINE INDEX 3.9 ug/dL (1.4-4.5); T4(THYROXINE) 10.6 ug/dL (4.7-13.3)
[2017-01-06 05:36] VITALS: BP 108/79
--- NOTE | 2017-01-06 06:35 | NUR ---
PT. RESTING QUIETLY, SITTING UP IN BED. NO COMPLAINTS. NO RESP. DISTRESS SINCE ADMISSION TO UNIT. PT. ON RA. SINUS RHYTHM. IVF INFUSING AT KVO. CALL LIGHT WITHIN REACH. WILL ENDORSE PT. CARE TO INCOMING NURSE.
[2017-01-06 07:27] LABS: CALCIUM 8.9 mg/dL (8.5-10.1); CARBON DIOXIDE 24.5 mmol/L (21-32); CREATININE SERUM 1.7 mg/dL (0.7-1.3); POTASSIUM SERUM 4.4 mmol/L (3.5-5.1)
[2017-01-06 08:13] LABS: BASOPHIL % 0.7 % (0-2); PLATELET COUNT 88 x10^3mcL (130-400); RED CELL DISTRIBUTION WIDTH 17.6 % (11.5-14.5)
[2017-01-06 09:02] VITALS: BP 119/80
--- NOTE | 2017-01-06 09:13 | NUR ---
PT ON BED, AWAKE, ALERT, AND ORIENTED. HAS NO COMPLAINT OF PAIN, SOB, OR DIZZINESS. RESPONDS WELL TO QUESTION AND ANSWER. CLEAR TIMOTHY LUNG FIELD, SYMMETRICAL CHEST EXPANSION AND UNLABORED. ACTIVE BOWEL SOUNDS NOTED. NON DISTENDED ABDOMEN. SIDE RAILS UP, CALL LIGHT WITHIN REACH, WILL CONTINUE TO MONITOR
--- NOTE | 2017-01-06 10:07 | NUR ---
DR. ZULETA WAS MADE AWARE OF PT'S U/S VENOUS RESULT. WAITING FOR ORDERS
--- NOTE | 2017-01-06 12:00 | NUR ---
PT'S ACCUCHECK SHOWED 129. NO COVERAGE AT THIS TIME
--- NOTE | 2017-01-06 12:40 | NUR ---
ELIQUIS MEDICATION GIVEN PER DR'S ORDER. WILL CONTINUE TO MONITOR
[2017-01-06 13:50] VITALS: BP 115/80
--- NOTE | 2017-01-06 15:24 | NUR ---
PT ON BED, ASLEEP. WILL CONTINUE TO MONITOR
--- NOTE | 2017-01-06 17:20 | NUR ---
PT ON BED, AWAKE, ALERT, AND ORIENTED. HAS NO COMPLAINT OF PAIN, SOB, OR DIZZINESS. RESPONDS WELL TO QUESTION AND ANSWER. SIDE RAILS UP, CALL LIGHT WITHIN REACH, WILL CONTINUE TO MONITOR
[2017-01-06 17:34] VITALS: BP 118/71
[2017-01-06 17:43] LABS: microscopic required? NO
[2017-01-06 18:22] LABS: UA SPECIFIC GRAVITY 1.015 (1.005-1.035); urine erythrocyte NEGATIVE (NEGATIVE)
[2017-01-06 18:33] LABS: AMPHETAMINE QUAL UR NONE DETECTED (NEG <=1000)
--- NOTE | 2017-01-06 20:00 | NUR ---
PT A/A/O X4. DENIES DIZZINESS AND HEADACHE. BREATH SOUNDS DIMINISHED TIMOTHY BASES BREATHING EVEN. PT C/O MILD SOB, SPO2 98% ON ROOM AIR. DENIES CHEST PAIN AND PRESSURE. BOWEL SOUNDS ACTIVE. NO C/O N/V AND ABD PAIN. DRYNESS NOTED ON BLE. WOUND NOTED ON RLE DEMETRI. PITTING EDEMA NOTED ON BLE. IV INTACT ON THE RIGHT FOREARM. MADE PT COMFORTABLE. PLACED CALL LIGHT WITH IN REACH. WILL CONTINUE TO MONITOR.
[2017-01-06 21:43] VITALS: BP 115/77
--- NOTE | 2017-01-07 00:15 | NUR ---
PT RESTING WITH EYES CLOSED. NO DISTRESS AND DISCOMFORT NOTED. WILL ENDORSE TO THE AM NURSE ACCORDINGLY.
--- NOTE | 2017-01-07 05:23 | NUR ---
PT QUIET AND RESTING. NO C/O SOB THUS FAR. IV INTACT. MADE PT COMFORTABLE. WILL ENDORSE TO THE AM NURSE ACCORDINGLY.
[2017-01-07 06:07] VITALS: BP 115/76
[2017-01-07 06:11] LABS: BASOPHIL % 0.5 % (0-2)
[2017-01-07 06:16] LABS: PLATELET COUNT 95 x10^3mcL (130-400)
[2017-01-07 06:32] LABS: CALCIUM 8.7 mg/dL (8.5-10.1); CREATININE SERUM 1.7 mg/dL (0.7-1.3); POTASSIUM SERUM 4.4 mmol/L (3.5-5.1)
--- NOTE | 2017-01-07 07:20 | NUR ---
PT LAYING IN BED. A/OX4. NO REPORT OF PAIN. NO SIGN OF ACUTE DISTRESS. S1S2 NSR W/ AVB. LUNG SOUNDS DIMINISHED, CTA BILATERALLY ON ROOM AIR. NO SOB. ABDOMEN SOFT, FLAT, NON-DISTENDED. PULSES +1 BLL, +2 BUE. +2 PITTING EDEMA BLE. MRSA POSITIVE, DR. LEMONS AWARE. CONTACT PRECAUTIONS IN PLACE. BED IN LOW POSITION. CALL LIGHT WITHIN REACH. WILL CONTINUE TO MONITOR.
[2017-01-07 07:30] VITALS: BP 113/69
--- NOTE | 2017-01-07 12:15 | NUR ---
PT LAYING IN BED. NO SIGN OF ACUTE DISTRESS. NO REPORT OF PAIN. A/OX4. IV FLUIDS FLOWING. BED IN LOW POSITION. CALL LIGHT WITHIN REACH. WILL CONTINUE TO MONITOR.
[2017-01-07 12:37] VITALS: BP 93/70
[2017-01-07 17:05] VITALS: BP 99/61
--- NOTE | 2017-01-07 18:12 | NUR ---
PT SITTING AT SIDE OF BED. A/OX4. NO REPORT OF PAIN. NO SIGN OF ACUTE DISTRESS. NSR W/ PVC. NO COMPLAINT OF SOB. SALINE LOCK. WOUNDS TO BLE DUPLICATING MACHINE SERVICER, NO DRAINAGE, NO FOUL ODOR, NO PAIN AT WOUND SITES. BED IN LOW POSITION. HOB >45 DEGREES. CALL LIGHT WITHIN REACH. WILL ENDORSE TO ONCOMING SHIFT.
--- NOTE | 2017-01-07 20:00 | NUR ---
RECEIVED PT IN BED, ALERT AND ORIENTED. ABLE TO VERBALIZE NEEDS. RESP. EVEB AND UNLABORED. LUNGS SOUNDS DIM. ON ROOM AIR, NO DISTRESS NOTED. AFEBRILE AND VITAL SIGNS STABLE. SR WITH OCCA. PVCS ON THE MONITOR, DENIES CHEST PAIN OR ANY DISCOMFORT AT THIS TIME. HL TO RFA, INTACT AN DPATENT. AMBULATES WITH A WALKER. VOIDING FREELY. ASSISTED WITH HS CARE. CALL LIGHT WITHIN REACH. WILL CONTINUE TO MONITOR.
[2017-01-07 20:57] VITALS: BP 104/78
--- NOTE | 2017-01-07 23:59 | NUR ---
NO COMPLAINTS NOTED. INSTRUCTED TO MAINTAIN NPO FOR A TEST IN AM, PT VERBALIZED UNDERSTANDING. WILL CONTINUE TO MONITOR.
--- NOTE | 2017-01-08 02:05 | NUR ---
EYES CLOSED, APREARS ASLEEP, EASILY AROUSABLE. NO DISTRESS NOTED. WILL CONTINUE TO MONITOR.
[2017-01-08 04:50] VITALS: BP 129/81
--- NOTE | 2017-01-08 06:05 | NUR ---
AFEBRILE AND VITAL SIGNS STABLE. DENIES CHEST PAIN OR ANY DISCOMFORT AT THIS TIME. RESP. EVEN AND UNLABORED. NO DISTRESS NOTED. NPO SINCE [place] MAINTAINED.FOR U/S GALLBLADDER THIS AM. NO SIGNIFICANT CHANGE NOTED IN PT,S CONDITION. CONTACT ISOLATION PREC. MAINTAINED. WILL CONTINUE TO MONITOR.
[2017-01-08 06:44] LABS: BASOPHIL % 0.5 % (0-2); PLATELET COUNT 108 x10^3mcL (130-400); RED CELL DISTRIBUTION WIDTH 17.7 % (11.5-14.5)
[2017-01-08 06:50] LABS: CALCIUM 9.2 mg/dL (8.5-10.1); CARBON DIOXIDE 28.7 mmol/L (21-32); CREATININE SERUM 1.5 mg/dL (0.7-1.3); MAGNESIUM 2.2 mg/dL (1.8-2.4); PHOSPHOROUS 3.7 mg/dL (2.5-4.9); POTASSIUM SERUM 4.6 mmol/L (3.5-5.1)
--- NOTE | 2017-01-08 07:38 | NUR ---
PT LAYING IN BED. A/OX4. NO REPORT OF PAIN. NO SIGN OF ACUTE DISTRESS. S1S2 NSR W/ PVCS. TELE #4. NO REPORT OF CHEST PAIN. NO REPORT OF PALPITATIONS. LUNG SOUNDS DIMINISHED, CTA BILATERALLY ON ROOM AIR. NO REPORT OF SOB. ABDOMEN SOFT, ROUND, NON-DISTENDED. WOUNDS TO BLE COLOR CONTROL OPERATOR, DRY, NO FOUL ODOR, NO EXUDATE. +2 PITTING EDEMA TO BLE. PULSES +1 BLE, +2 BUE. IV SALINE LOCKED. BED IN LOW POSITION. CALL LIGHT WITHIN REACH. WILL CONTINUE TO MONITOR.
[2017-01-08 09:36] VITALS: BP 109/78
--- NOTE | 2017-01-08 10:20 | NUR ---
MRSA POSITIVE RLE, DR. LEMONS AWARE.
--- NOTE | 2017-01-08 12:15 | NUR ---
PT LAYING IN BED. A/OX4. NO REPORT OF PAIN. NO SIGN OF ACUTE DISTRESS. SALINE LOCK. HOB ELEVATED 45 DEGREES. NO SOB REPORTED. NO CHEST PAIN. NSR W/ 1ST DEGREE AV BLOCK. NO REPORT OF CHEST PAIN. BED IN LOW POSITION. CALL LIGHT WITHIN REACH. WILL CONTINUE TO MONITOR.
[2017-01-08 14:42] VITALS: BP 102/66
[2017-01-08 17:40] VITALS: BP 112/74
--- NOTE | 2017-01-08 18:07 | NUR ---
PT SITTING ON THE EDGE OF THE BED, AAOX4. NO C/O SOB AND PAIN. SIDE RAILS UPX2. CALL LIGHT ON REACH. WILL CONT TO MONITOR
--- NOTE | 2017-01-08 20:00 | NUR ---
RECEIVED PT IN ROOM, SITTING UP IN BED, WATCHING TV. ALERT AND ORIENTED. DENIES HEADACHE/DIZZINESS. RESP. EVEN AND UNLABORED. ON ROOM AIR, NO DISTRESS NOTED. AFEBRILE AND VITAL SIGNS STABLE. HL TO RFA, INTACT AND PATENT. SR WITH [facility]. PVCS, ON THE MONITOR. DENIES CHEST PAIN OR ANY DISCOMFORT AT THIS TIME. WITH 2-3+ EDEMA TO BLE , MULT. 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 VOIDING FREELY. ASSISTED WITH HS CARE. REMAINS ON CONTACT ISOLATION. WILL MAINTAIN PRECS. CALL LIGHT WITHIN REACH. WILL CONTINUE TO MONITOR.
[2017-01-08 21:22] VITALS: BP 111/79
--- NOTE | 2017-01-09 02:20 | NUR ---
EYES CLOSED, APPEARS ASLEEP. EASILY AROUSABLE. RESP. EVEN AND UNLABORED. NO DISTRESS NOTED. WILL CONTINUE TO MONITOR.
[2017-01-09 05:29] VITALS: BP 90/58
--- NOTE | 2017-01-09 06:26 | NUR ---
AFEBRILE AND VITAL SIGNS STABLE. SLEPT WELL, NO COMPLAINTS NOTED. DUE MEDS GIVEN ORDERED, AYDIN. WELL. KEPT COMFORTABLE. CONTACT ISOLATION PREC.MAINTAINED. RESP. EVEN AND UNLABORED, NO DISTRESS NOTED. WILL ENDORSE TO INCOMING NURSE.
[2017-01-09 07:22] LABS: BASOPHIL % 0.7 % (0-2)
[2017-01-09 07:23] LABS: PLATELET COUNT 92 x10^3mcL (130-400); RED CELL DISTRIBUTION WIDTH 17.8 % (11.5-14.5)
--- NOTE | 2017-01-09 07:25 | NUR ---
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
[2017-01-09 07:56] LABS: CALCIUM 9.2 mg/dL (8.5-10.1); CARBON DIOXIDE 25.9 mmol/L (21-32); CREATININE SERUM 1.4 mg/dL (0.7-1.3); POTASSIUM SERUM 4.8 mmol/L (3.5-5.1)
[2017-01-09 09:32] VITALS: BP 111/74
[2017-01-09 12:28] VITALS: BP 111/74
[2017-01-09] MEDS ORDERED: HIBICLENS118 ML TOP (12:53)
[2017-01-09] MEDS ORDERED: BACO TOP (12:53)
[2017-01-09] MEDS ORDERED: COR6 PO (12:53)
[2017-01-09] MEDS ORDERED: ELIQUIS5 MG PO (12:53)
[2017-01-09] MEDS ORDERED: ALD25 PO (12:53)
[2017-01-09] MEDS ORDERED: LAC PO (12:53)
[2017-01-09] MEDS ORDERED: BACTRIM DS1 TAB PO (12:53)
[2017-01-09] MEDS ORDERED: EUCERIN ORIGIN250 ML TOP (12:53)
--- NOTE | 2017-01-09 13:39 | NUR ---
PT D/C TO [facility] IV AND MONITOR D/C'D.D/C INSTRUCTION GIVEN PT VERBALIZES UNDERSTANIDNG.WENT DOWN VIA WHEELCHAIR ACCOMPANIED BY [employer] MANAGER.TAXI WAITING DOWNSTAIRS.GAVE HIM SUPPLIES FOR DRESSING CHANGE AND GAVE HIM THE BACTROBAN AND HEBICLENS LIQUID.
== END 2017-01-09 13:52 | disposition home or self-care (01) | DRG 291 ==
LOC: ED 21:45 → DU 22:58
PROVIDERS: Emergency Medicine; Family Medicine; ADMIT Family Medicine
DX: I11.0 Hypertensive heart disease with heart failure (principal); N17.0 Acute kidney failure with tubular necrosis; D68.69 Other thrombophilia; I82.431 Acute embolism and thrombosis of right popliteal vein; L97.811 Non-pressure chronic ulcer of other part of right lower leg limited to breakdown of skin; L97.821 Non-pressure chronic ulcer of other part of left lower leg limited to breakdown of skin; I50.43 Acute on chronic combined systolic (congestive) and diastolic (congestive) heart failure; I42.0 Dilated cardiomyopathy; E11.65 Type 2 diabetes mellitus with hyperglycemia; E83.41 Hypermagnesemia; F41.9 Anxiety disorder, unspecified; K21.9 Gastro-esophageal reflux disease without esophagitis; E78.5 Hyperlipidemia, unspecified; E80.6 Other disorders of bilirubin metabolism; D53.9 Nutritional anemia, unspecified; Z79.84 Long term (current) use of oral hypoglycemic drugs; Z95.810 Presence of automatic (implantable) cardiac defibrillator; Z22.322 Carrier or suspected carrier of Methicillin resistant Staphylococcus aureus
CPT/HCPCS: 83880; 84439; J0690; J1940; J2405; J7030; Q0092

== ENCOUNTER 2017-01-30 17:56 | Observation (INO) | payer OTHER ==
[~2017-01-30] VITALS: Ht 198.1 cm; Wt 119.9 kg
[~2017-01-30 17:56] MED LIST changes: +BACO TOP; +BACTRIM DS1 TAB PO; +CARVEDILOL12.5 M1 PO; +COR6 PO; +ELIQUIS5 MG PO; +EUCERIN ORIGIN250 ML TOP; +HIBICLENS118 ML TOP; +METFORMIN HYDR500 M1 PO; +POTASSIUM CHLO10 MEQ PO
--- NOTE | 2017-01-30 18:19 | NUR ---
PT IN ED WITH C/O RIGHT HAND NUMBNESS X1 WEEK, PRIMARILY THE POSTERIOR RIGHT HAND PER PT, DENIES TRAUMA OR INJURY, DENIES ANY WEAKNESS, HX OF STROKE X3 PER PT, PT IS AAO4, NO ACUTE DISTRESS, NO UNILATERAL WEAKNESS, DR. BARNES PERFORMED MSE
--- NOTE | 2017-01-30 19:10 | NUR ---
REPORT RECIEVED FROM [employer] [facility] TO ASSUME CARE.
[2017-01-30 19:13] LABS: ALBUMIN 3.5 g/dL (3.4-5.0); ALKALINE PHOSPHATASE 58 U/L (46-116); ALT/SGPT 13 U/L (16-63); AST/SGOT 19 U/L (15-37); BILIRUBIN TOTAL 1.1 mg/dL (0.20-1.00); CALCIUM 8.8 mg/dL (8.5-10.1); CARBON DIOXIDE 27.4 mmol/L (21-32); CHLORIDE SERUM 106 mmol/L (98-107); CREATININE SERUM 1.5 mg/dL (0.7-1.3); GFR1 51 mL/min; GLUCOSE SERUM 113 mg/dL (74-106); SODIUM SERUM 138 mmol/L (136-145); TOTAL PROTEIN, SERUM 8.2 g/dL (6.4-8.2)
--- NOTE | 2017-01-30 19:19 | NUR ---
PT RESTING ON GURNEY IN NO ACUTE DISTRESS, RESP E/U. VITALS UPDATED. BED IN LOW POSITION. CALL LIGHT WITHIN REACH.
[2017-01-30 19:23] LABS: CHOLESTEROL 93 mg/dL (<200)
[2017-01-30 19:25] LABS: POTASSIUM SERUM 6.1 mmol/L (3.5-5.1)
--- NOTE | 2017-01-30 19:36 | NUR ---
PT MEDICATED PER MD ORDER. SEE EMAR.
--- NOTE | 2017-01-30 19:40 | NUR ---
MADE AWARE OF POTASSIUM 6.1
--- NOTE | 2017-01-30 19:43 | NUR ---
PT PLACED ON FULL CM.
[2017-01-30 20:03] LABS: PLATELET COUNT 100 x10^3mcL (130-400)
[2017-01-30 20:20] LABS: BAND NEUTROPHIL 0 % (0-10); MONOCYTE 15 % (0-7); SEGMENTED NEUTROPHILS 40 % (37-75)
[2017-01-30 20:21] LABS: BASOPHIL 1 % (0-2); rbc morphology (normal/abnorm) NORMAL (NORMAL)
[2017-01-30] MEDS ORDERED: METFORMIN HYDR500 M1 PO (21:09)
[2017-01-30] MEDS ORDERED: POTASSIUM CHLO10 ME2 PO (21:09)
[2017-01-30] MEDS ORDERED: CARVEDILOL6.25 M1 PO (21:09)
[2017-01-30] MEDS ORDERED: SULFAMETHOXAZOL1 TA3 PO (21:09)
[2017-01-30] MEDS ORDERED: LISINOPRIL10 MG PO (21:10)
[2017-01-30] MEDS ORDERED: FUROSEMIDE40 MG PO (21:10)
[2017-01-30] MEDS ORDERED: SIMVASTATIN40 M1 PO (21:10)
[2017-01-30] MEDS ORDERED: ALDACTONE25 MG PO (21:10)
--- NOTE | 2017-01-30 22:07 | NUR ---
PT TAKEN TO CT.
[2017-01-30 23:01] LABS: T3 TOTAL 0.97 ng/mL
[2017-01-30 23:12] LABS: MAGNESIUM 2.5 mg/dL (1.8-2.4); PHOSPHOROUS 3.5 mg/dL (2.5-4.9)
[2017-01-30 23:15] LABS: CHOLESTEROL/HDL RATIO 2.1
[2017-01-30 23:36] LABS: FREE T4 1.35 ng/dL (0.76-1.46); FREE THYROXINE INDEX 3.7 ug/dL (1.4-4.5); T4(THYROXINE) 10.3 ug/dL (4.7-13.3)
--- NOTE | 2017-01-31 00:28 | NUR ---
REPORT CALLED TO [facility] TO ASSUME CARE.
--- NOTE | 2017-01-31 00:40 | NUR ---
PT TRANSFERRED ON FULL CM WITH [employer] [facility] AND EMT TO TELE UNIT IN NO ACUTE DISTRESS.
--- NOTE | 2017-01-31 00:50 | NUR ---
RECEIVED PT FROM ED VIA LJ, CAME IN DUE TO RIGHT ARM NUMBNESS. AAOX4. NO SOB NOTED. 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 DENIES ABDOMINAL DISCOMFORT. VOIDS. W/ HEALED WOUNDS ON BLE. DENIES NUMBNESS/TINGLING SENSATION AT THIS TIME. W/ SWELLING ON BLE. SIDE RAILS UPX2. CALL LIGHT ON REACH. PRIMARY NURSE MILE AT BEDSIDE.
[2017-01-31 01:04] VITALS: BP 111/79
[2017-01-31 01:07] VITALS: Ht 198.1 cm; Wt 119.9 kg
--- NOTE | 2017-01-31 01:40 | NUR ---
RANDOM BS CHECKED @ 62 MG/DL.SNACKS GIVEN AT THIS TIME.WILL CONTINUE TO MONITOR.
[2017-01-31 02:01] LABS: CALCIUM 8.9 mg/dL (8.5-10.1); CARBON DIOXIDE 25.1 mmol/L (21-32); CREATININE SERUM 1.5 mg/dL (0.7-1.3)
--- NOTE | 2017-01-31 04:46 | NUR ---
PT SLEPT WELL ALL NIGHT SINCE ADMISSION.DENIES R ARM NUMBESS.DENIES CHESTPAIN.ALL NEEDS MET.WILL CONTINUE TO MONITOR.
[2017-01-31 05:48] VITALS: BP 107/73
[2017-01-31 06:42] LABS: BASOPHIL % 1.1 % (0-2)
[2017-01-31 06:57] LABS: PLATELET COUNT 96 x10^3mcL (130-400); RED CELL DISTRIBUTION WIDTH 16.8 % (11.5-14.5)
--- NOTE | 2017-01-31 07:50 | NUR ---
A+OX4, NO RESPIRATORY DISTRESS NOTED, DENIES PAIN, TELE 24, EDEMA BLE, PULSES MODERATE AND EQUAL TIMOTHY, SCDS ON, LUNG SOUNDS CTA, TOLERATING RA, VOIDING, PT INSTRUCTED TO URINATE IN URINAL FOR SAMPLE, GENERALIZED WEAKNESS, AMBULATORY, SKIN INTACT, IV SALINE LOCKED IN LAC, SITE WNL, WBC 3.6, RBC 3.30, HGB 11.1, HCT 34, PLT 96, CL 108, K 5.0, BUN 29.0, CR 1.5.
--- NOTE | 2017-01-31 08:23 | NUR ---
PT RESTING IN BED, NO RESPRIATORY DISTRESS NOTED, DENIES PAIN.
[2017-01-31 09:22] VITALS: BP 107/73
[2017-01-31 10:10] VITALS: BP 118/73
--- NOTE | 2017-01-31 10:46 | NUR ---
PT GIVEN DISCHARGE INSTRUCTIONS AND VERBALIZED UNDERSTANDING, IV REMOVED WITH CATHETER INTACT, TELE REMOVED AND RETURNED TO MT STATION. PT STATED HE WOULD LIKE TO STAY UNTIL AFTER LUNCH. CHARGE NURSE AWARE.
--- NOTE | 2017-01-31 11:25 | NUR ---
PT REFUSED INSULIN FOR BLOOD GLUCOSE 167.
--- NOTE | 2017-01-31 12:18 | NUR ---
PT RESTING IN BED, NO RESPIRAOTRY DISTRESS NOTED, DENIES PAIN.
--- NOTE | 2017-01-31 12:35 | NUR ---
PT ANGRY AND AGGRESSIVE TOWARDS NURSE. PT DEMANDING TO KNOW WHEN HE WILL RECEIVE HIS LUNCH SO HE CAN LEAVE. PT NOTIFIED THAT HE HAS BEEN DISCHARGED AND IS FREE TO LEAVE WHEN HE CHOOSES. PT NOTIFIED THAT [facility] BRINGS UP LUNCH TRAYS FROM [id number]. CHARGE NURSE AWARE.
--- NOTE | 2017-01-31 13:03 | NUR ---
PT OFF UNIT WITH ALL BELONGINGS ESCORTED BY CASHIER CHECKER.
== END 2017-01-31 13:10 | disposition home or self-care (01) | DRG 551 ==
LOC: ED 17:56 → DU 01-31 00:03 → EDBEDREQ 01-31 00:04 → DU 01-31 00:50
PROVIDERS: Specialist; ADMIT Family Medicine
DX: M50.10 Cervical disc disorder with radiculopathy, unspecified cervical region (principal); I50.43 Acute on chronic combined systolic (congestive) and diastolic (congestive) heart failure; N17.0 Acute kidney failure with tubular necrosis; I82.5Z1 Chronic embolism and thrombosis of unspecified deep veins of right distal lower extremity; I82.531 Chronic embolism and thrombosis of right popliteal vein; E87.5 Hyperkalemia; E11.65 Type 2 diabetes mellitus with hyperglycemia; D53.9 Nutritional anemia, unspecified; I11.0 Hypertensive heart disease with heart failure; E03.9 Hypothyroidism, unspecified; Z79.01 Long term (current) use of anticoagulants; Z95.828 Presence of other vascular implants and grafts; Z86.73 Personal history of transient ischemic attack (TIA), and cerebral infarction without residual deficits; Z95.810 Presence of automatic (implantable) cardiac defibrillator; Z79.84 Long term (current) use of oral hypoglycemic drugs; Z59.0 Homelessness; Z68.30 Body mass index [BMI] 30.0-30.9, adult
CPT/HCPCS: 83880; 84439; G0378; G0480; J0610; J1815; J3490; J7030; J7050

== ENCOUNTER 2017-03-08 16:34 | Inpatient (IN) | payer OTHER ==
[~2017-03-08] VITALS: Ht 198.1 cm; Wt 124.4 kg
[~2017-03-08 16:34] MED LIST changes: +ALDACTONE25 MG PO; +CARVEDILOL6.25 M1 PO; +POTASSIUM CHLO10 ME2 PO; +SULFAMETHOXAZOL1 TA3 PO
[2017-03-08 17:22] LABS: BASOPHIL % 0.8 % (0-2); CARBON DIOXIDE 24.4 mmol/L (21-32); CREATININE SERUM 1.7 mg/dL (0.7-1.3); POTASSIUM SERUM 5.2 mmol/L (3.5-5.1)
[2017-03-08 17:25] LABS: ALBUMIN 3.9 g/dL (3.4-5.0)
[2017-03-08 17:26] LABS: TOTAL PROTEIN, SERUM 8.7 g/dL (6.4-8.2)
[2017-03-08 17:27] LABS: PLATELET COUNT 112 x10^3mcL (130-400); RED CELL DISTRIBUTION WIDTH 16.8 % (11.5-14.5)
[2017-03-08 20:25] LABS: MAGNESIUM 2.6 mg/dL (1.8-2.4); PHOSPHOROUS 4.1 mg/dL (2.5-4.9)
[2017-03-08 20:28] LABS: CHOLESTEROL/HDL RATIO 3.4
[2017-03-08 20:32] LABS: FREE T4 1.26 ng/dL (0.76-1.46); FREE THYROXINE INDEX 2.8 ug/dL (1.4-4.5); T4(THYROXINE) 8.1 ug/dL (4.7-13.3)
[2017-03-08 20:37] LABS: T3 TOTAL 0.58 ng/mL
[2017-03-08 20:40] VITALS: BP 122/74
[2017-03-08 20:46] VITALS: BP 122/74
[2017-03-08] MEDS ORDERED: CARVEDILOL3.125 M1 PO (23:41)
[2017-03-08] MEDS ORDERED: XARELTO15 M1 PO (23:42)
[2017-03-08] MEDS ORDERED: GLUCOTROL5 MG PO (23:42)
[2017-03-08 23:50] VITALS: BP 122/74
[2017-03-09 06:03] VITALS: BP 112/69
[2017-03-09 06:46] LABS: microscopic required? NO
[2017-03-09 07:25] LABS: BASOPHIL % 0.2 % (0-2)
[2017-03-09 07:52] LABS: CALCIUM 8.9 mg/dL (8.5-10.1); CARBON DIOXIDE 24.7 mmol/L (21-32); MAGNESIUM 2.5 mg/dL (1.8-2.4); PHOSPHOROUS 4.8 mg/dL (2.5-4.9); POTASSIUM SERUM 5.3 mmol/L (3.5-5.1)
[2017-03-09 08:38] LABS: PLATELET COUNT 112 x10^3mcL (130-400); RED CELL DISTRIBUTION WIDTH 16.4 % (11.5-14.5)
[2017-03-09 09:31] VITALS: BP 107/66
[2017-03-09 10:46] LABS: UA SPECIFIC GRAVITY 1.025 (1.005-1.035); urine erythrocyte NEGATIVE (NEGATIVE)
[2017-03-09 11:33] LABS: AMPHETAMINE QUAL UR NONE DETECTED (NEG <=1000)
[2017-03-09 13:15] VITALS: BP 111/68
[2017-03-09 16:48] VITALS: BP 95/55
[2017-03-09 22:02] VITALS: BP 94/51
[2017-03-10 06:09] VITALS: BP 93/56
[2017-03-10 08:46] LABS: CALCIUM 8.7 mg/dL (8.5-10.1); CARBON DIOXIDE 27.7 mmol/L (21-32); CREATININE SERUM 1.9 mg/dL (0.7-1.3); MAGNESIUM 2.4 mg/dL (1.8-2.4)
[2017-03-10 09:13] VITALS: BP 92/54
[2017-03-10 09:21] VITALS: BP 92/54
[2017-03-10 09:22] LABS: BASOPHIL % 0 % (0-2); PLATELET COUNT 113 x10^3mcL (130-400); RED CELL DISTRIBUTION WIDTH 16.8 % (11.5-14.5)
[2017-03-10] MEDS ORDERED: FUROSEMIDE40 MG PO (10:12)
[2017-03-10] MEDS ORDERED: LIPITOR80 MG PO (10:12)
[2017-03-10] MEDS ORDERED: XARELTO15 M1 PO (10:14)
[2017-03-10] MEDS ORDERED: CARVEDILOL3.125 M1 PO (10:14)
[2017-03-10] MEDS ORDERED: GLUCOTROL5 MG PO (10:18)
== END 2017-03-10 13:05 | disposition home or self-care (01) | DRG 291 ==
LOC: ED 16:34 → DU 19:12
PROVIDERS: Emergency Medicine; Family Medicine
DX: I50.43 Acute on chronic combined systolic (congestive) and diastolic (congestive) heart failure (principal); N17.0 Acute kidney failure with tubular necrosis; I42.0 Dilated cardiomyopathy; E11.22 Type 2 diabetes mellitus with diabetic chronic kidney disease; E11.65 Type 2 diabetes mellitus with hyperglycemia; N18.9 Chronic kidney disease, unspecified; I87.8 Other specified disorders of veins; E83.41 Hypermagnesemia; E87.5 Hyperkalemia; E03.9 Hypothyroidism, unspecified; Z86.718 Personal history of other venous thrombosis and embolism; Z79.01 Long term (current) use of anticoagulants; Z86.73 Personal history of transient ischemic attack (TIA), and cerebral infarction without residual deficits; Z68.31 Body mass index [BMI] 31.0-31.9, adult
CPT/HCPCS: 83880; 84439; 87804; 94150; J0690; J1940; J2405; J2930; J7030; J7613; J7620; J7644; Q0092

== ENCOUNTER 2017-04-26 12:19 | Inpatient (IN) | payer OTHER ==
[~2017-04-26] VITALS: Ht 190.5 cm; Wt 102.3 kg
[~2017-04-26 12:19] MED LIST changes: +CARVEDILOL3.125 M1 PO; +GLUCOTROL5 MG PO; +LIPITOR80 MG PO; +XARELTO15 M1 PO
[2017-04-26 13:14] LABS: BASOPHIL % 0.3 % (0-2)
[2017-04-26 13:15] LABS: PLATELET COUNT 118 x10^3mcL (130-400); RED CELL DISTRIBUTION WIDTH 18.4 % (11.5-14.5)
[2017-04-26 13:49] LABS: ALBUMIN 3.5 g/dL (3.4-5.0); BILIRUBIN TOTAL 3.6 mg/dL (0.20-1.00); CALCIUM 8.8 mg/dL (8.5-10.1); CARBON DIOXIDE 25.7 mmol/L (21-32); CREATININE SERUM 1.7 mg/dL (0.7-1.3)
[2017-04-26 13:51] LABS: TOTAL PROTEIN, SERUM 8.5 g/dL (6.4-8.2)
[2017-04-26 13:52] LABS: POTASSIUM SERUM 5.6 mmol/L (3.5-5.1)
[2017-04-26 15:34] VITALS: BP 106/73
[2017-04-26 16:32] LABS: T3 TOTAL 0.58 ng/mL
[2017-04-26 18:07] LABS: CHOLESTEROL/HDL RATIO 3.5; MAGNESIUM 2.8 mg/dL (1.8-2.4); PHOSPHOROUS 3.4 mg/dL (2.5-4.9)
[2017-04-26 18:25] VITALS: BP 106/73
[2017-04-26 19:29] LABS: FREE T4 1.34 ng/dL (0.76-1.46); FREE THYROXINE INDEX 2.9 ug/dL (1.4-4.5); T4(THYROXINE) 8.1 ug/dL (4.7-13.3)
[2017-04-26 20:45] VITALS: BP 112/80
[2017-04-26 22:31] LABS: microscopic required? YES; urine erythrocyte NEGATIVE (NEGATIVE)
[2017-04-26 22:40] LABS: AMPHETAMINE QUAL UR NONE DETECTED (NEG <=1000)
[2017-04-27 05:25] VITALS: BP 98/60
[2017-04-27 06:41] LABS: BASOPHIL % 0.3 % (0-2)
[2017-04-27 06:49] LABS: CALCIUM 8.7 mg/dL (8.5-10.1); CREATININE SERUM 1.7 mg/dL (0.7-1.3); MAGNESIUM 2.5 mg/dL (1.8-2.4); PHOSPHOROUS 4.2 mg/dL (2.5-4.9); POTASSIUM SERUM 4.2 mmol/L (3.5-5.1)
[2017-04-27 07:08] LABS: PLATELET COUNT 119 x10^3mcL (130-400); RED CELL DISTRIBUTION WIDTH 18.6 % (11.5-14.5)
[2017-04-27 08:42] VITALS: BP 100/68
[2017-04-27 08:50] VITALS: Ht 190.5 cm; Wt 102.3 kg
[2017-04-27 12:34] VITALS: BP 95/69
[2017-04-27 16:52] VITALS: BP 97/63
[2017-04-27 21:07] VITALS: BP 94/57
[2017-04-28 05:36] VITALS: BP 94/62
[2017-04-28 07:38] LABS: BASOPHIL % 0.4 % (0-2); CALCIUM 8.4 mg/dL (8.5-10.1); CARBON DIOXIDE 26.7 mmol/L (21-32); CREATININE SERUM 1.5 mg/dL (0.7-1.3); MAGNESIUM 2.5 mg/dL (1.8-2.4); PHOSPHOROUS 3.2 mg/dL (2.5-4.9); POTASSIUM SERUM 4.2 mmol/L (3.5-5.1)
[2017-04-28 07:39] LABS: PLATELET COUNT 113 x10^3mcL (130-400); RED CELL DISTRIBUTION WIDTH 18.6 % (11.5-14.5)
[2017-04-28 09:10] VITALS: BP 103/72
[2017-04-28 12:17] VITALS: BP 103/72
[2017-04-28] MEDS ORDERED: AMIODARONE HCL200 MG PO (13:46)
[2017-04-28 14:18] VITALS: BP 106/42
== END 2017-04-28 14:03 | disposition home or self-care (01) | DRG 291 ==
LOC: ED 12:19 → DU 14:04 → EDBEDREQ 14:07 → DU 14:10
PROVIDERS: Family Medicine; Student in an Organized Health Care Education/Training Program
DX: I13.0 Hypertensive heart and chronic kidney disease with heart failure and stage 1 through stage 4 chronic kidney disease, or unspecified chronic kidney disease (principal); I50.43 Acute on chronic combined systolic (congestive) and diastolic (congestive) heart failure; N17.0 Acute kidney failure with tubular necrosis; E87.1 Hypo-osmolality and hyponatremia; Z86.73 Personal history of transient ischemic attack (TIA), and cerebral infarction without residual deficits; Z95.0 Presence of cardiac pacemaker; I42.0 Dilated cardiomyopathy; E11.22 Type 2 diabetes mellitus with diabetic chronic kidney disease; N18.3 Chronic kidney disease, stage 3 (moderate); Z86.718 Personal history of other venous thrombosis and embolism; D64.9 Anemia, unspecified; E87.5 Hyperkalemia; E83.41 Hypermagnesemia; D69.6 Thrombocytopenia, unspecified; E11.65 Type 2 diabetes mellitus with hyperglycemia
CPT/HCPCS: 83880; 84439; G0378; J1940; Q0092

== ENCOUNTER 2017-04-29 19:38 | Observation (INO) | payer OTHER ==
[~2017-04-29] VITALS: Ht 190.5 cm; Wt 100.0 kg
[~2017-04-29 19:38] MED LIST changes: +AMIODARONE HCL200 MG PO
[2017-04-29 21:28] LABS: BASOPHIL % 1.1 % (0-2); PLATELET COUNT 133 x10^3mcL (130-400)
[2017-04-29 21:30] LABS: RED CELL DISTRIBUTION WIDTH 18.1 % (11.5-14.5)
[2017-04-29 21:33] LABS: CALCIUM 8.9 mg/dL (8.5-10.1); CARBON DIOXIDE 27.8 mmol/L (21-32); CREATININE SERUM 1.6 mg/dL (0.7-1.3); POTASSIUM SERUM 4.5 mmol/L (3.5-5.1)
[2017-04-29 21:38] LABS: ALBUMIN 3.3 g/dL (3.4-5.0); BILIRUBIN TOTAL 2.39 mg/dL (0.20-1.00); TOTAL PROTEIN, SERUM 8.4 g/dL (6.4-8.2)
[2017-04-30 01:00] VITALS: BP 97/66
[2017-04-30 02:51] LABS: MAGNESIUM 2.6 mg/dL (1.8-2.4); PHOSPHOROUS 3.5 mg/dL (2.5-4.9)
[2017-04-30 02:52] LABS: T3 TOTAL 0.54 ng/mL
[2017-04-30 02:54] LABS: FREE T4 1.36 ng/dL (0.76-1.46); FREE THYROXINE INDEX 2.7 ug/dL (1.4-4.5); T4(THYROXINE) 8.5 ug/dL (4.7-13.3)
[2017-04-30 02:56] LABS: CHOLESTEROL/HDL RATIO 4.9
[2017-04-30 03:10] VITALS: BP 97/66
[2017-04-30 05:16] VITALS: BP 100/67
[2017-04-30 06:26] LABS: BASOPHIL % 0.1 % (0-2)
[2017-04-30 06:27] LABS: CALCIUM 8.3 mg/dL (8.5-10.1); CARBON DIOXIDE 27.3 mmol/L (21-32); CREATININE SERUM 1.5 mg/dL (0.7-1.3); POTASSIUM SERUM 4.6 mmol/L (3.5-5.1)
[2017-04-30 06:35] LABS: PLATELET COUNT 126 x10^3mcL (130-400); RED CELL DISTRIBUTION WIDTH 18.1 % (11.5-14.5)
[2017-04-30 08:55] VITALS: Ht 190.5 cm; Wt 100.0 kg
[2017-04-30 13:53] VITALS: BP 113/78
[2017-04-30] MEDS ORDERED: LAC PO (14:46)
[2017-04-30] MEDS ORDERED: ZOSYN1 PD1 IV (14:46)
[2017-04-30 16:38] VITALS: BP 113/78
== END 2017-04-30 18:03 | DRG 637 ==
LOC: ED 19:38 → DU 22:30
PROVIDERS: Emergency Medicine; Family Medicine Sports Medicine
DX: E11.622 Type 2 diabetes mellitus with other skin ulcer (principal); I50.43 Acute on chronic combined systolic (congestive) and diastolic (congestive) heart failure; L03.115 Cellulitis of right lower limb; L97.911 Non-pressure chronic ulcer of unspecified part of right lower leg limited to breakdown of skin; I42.0 Dilated cardiomyopathy; N17.0 Acute kidney failure with tubular necrosis; B96.89 Other specified bacterial agents as the cause of diseases classified elsewhere; E11.65 Type 2 diabetes mellitus with hyperglycemia; E11.51 Type 2 diabetes mellitus with diabetic peripheral angiopathy without gangrene; D53.9 Nutritional anemia, unspecified; E03.9 Hypothyroidism, unspecified; Z95.810 Presence of automatic (implantable) cardiac defibrillator; Z86.73 Personal history of transient ischemic attack (TIA), and cerebral infarction without residual deficits; Z79.01 Long term (current) use of anticoagulants; Z16.24 Resistance to multiple antibiotics
CPT/HCPCS: 83880; 84439; G0378; J1940; J2405; J2543; J2930; J3010; J3370; J7030; J7050; J7613

== ENCOUNTER 2017-07-11 14:44 | Inpatient (IN) | payer OTHER ==
[~2017-07-11] VITALS: Ht 190.5 cm; Wt 134.7 kg
[~2017-07-11 14:44] MED LIST changes: +ZOSYN1 PD1 IV
[2017-07-11 14:52] VITALS: Ht 190.5 cm; Wt 134.7 kg
[2017-07-11 15:57] LABS: BASOPHIL % 0.5 % (0-2)
[2017-07-11 15:59] LABS: PLATELET COUNT 88 x10^3mcL (130-400)
[2017-07-11 16:09] LABS: CALCIUM 8.5 mg/dL (8.5-10.1); CARBON DIOXIDE 27.1 mmol/L (21-32); CREATININE SERUM 1.9 mg/dL (0.7-1.3); POTASSIUM SERUM 4.9 mmol/L (3.5-5.1)
[2017-07-11 16:14] LABS: BILIRUBIN TOTAL 1.9 mg/dL (0.20-1.00); TOTAL PROTEIN, SERUM 7.7 g/dL (6.4-8.2)
[2017-07-11 16:20] LABS: ALBUMIN 3.2 g/dL (3.4-5.0)
[2017-07-11] MEDS ORDERED: METFORMIN HYDR500 M1 PO (16:43)
[2017-07-11] MEDS ORDERED: CARVEDILOL6.25 M1 PO (16:44)
[2017-07-11] MEDS ORDERED: AMIODARONE HCL200 MG PO (16:44)
[2017-07-11] MEDS ORDERED: VITAMIN B121000 MCG PO (16:45)
[2017-07-11] MEDS ORDERED: XARELTO10 M1 PO (16:46)
[2017-07-11 18:01] VITALS: BP 106/71
[2017-07-11 18:15] LABS: MAGNESIUM 2.5 mg/dL (1.8-2.4); PHOSPHOROUS 4.2 mg/dL (2.5-4.9)
[2017-07-11 18:23] LABS: T3 TOTAL 0.48 ng/mL
[2017-07-11 18:30] LABS: FREE T4 1.27 ng/dL (0.76-1.46); FREE THYROXINE INDEX 3.6 ug/dL (1.4-4.5); T4(THYROXINE) 10.1 ug/dL (4.7-13.3)
[2017-07-11] MEDS ORDERED: METFORMIN HCL500 MG PO (20:30)
[2017-07-11 21:40] VITALS: BP 118/68
[2017-07-11 23:06] LABS: UA SPECIFIC GRAVITY 1.015 (1.005-1.035); microscopic required? YES; urine erythrocyte NEGATIVE (NEGATIVE)
[2017-07-11 23:14] LABS: AMPHETAMINE QUAL UR NONE DETECTED (NEG <=1000)
[2017-07-12 05:44] VITALS: BP 93/65
[2017-07-12 07:34] LABS: CHOLESTEROL/HDL RATIO 2.4
[2017-07-12 07:53] LABS: CALCIUM 8.6 mg/dL (8.5-10.1); CARBON DIOXIDE 27.5 mmol/L (21-32); CREATININE SERUM 1.9 mg/dL (0.7-1.3); POTASSIUM SERUM 5.1 mmol/L (3.5-5.1)
[2017-07-12 08:07] LABS: BASOPHIL % 0.6 % (0-2)
[2017-07-12 08:09] LABS: PLATELET COUNT 88 x10^3mcL (130-400); RED CELL DISTRIBUTION WIDTH 18.4 % (11.5-14.5)
[2017-07-12 09:27] VITALS: BP 103/63
[2017-07-12 12:50] VITALS: BP 108/76
[2017-07-12 17:40] VITALS: BP 105/61
[2017-07-12] MEDS ORDERED: XARELTO15 M1 PO (18:16)
[2017-07-12 18:23] VITALS: BP 105/61
[2017-07-12 21:07] VITALS: BP 97/60
== END 2017-07-12 21:59 | DRG 291 ==
LOC: ED 14:44 → DU 17:11
PROVIDERS: Emergency Medicine; Family Medicine
DX: I50.43 Acute on chronic combined systolic (congestive) and diastolic (congestive) heart failure (principal); N17.0 Acute kidney failure with tubular necrosis; I82.431 Acute embolism and thrombosis of right popliteal vein; E44.1 Mild protein-calorie malnutrition; I48.2 Chronic atrial fibrillation; E11.51 Type 2 diabetes mellitus with diabetic peripheral angiopathy without gangrene; E11.65 Type 2 diabetes mellitus with hyperglycemia; D64.9 Anemia, unspecified; E80.6 Other disorders of bilirubin metabolism; E02 Subclinical iodine-deficiency hypothyroidism; G90.8 Other disorders of autonomic nervous system; Z95.0 Presence of cardiac pacemaker; Z68.32 Body mass index [BMI] 32.0-32.9, adult
CPT/HCPCS: 83880; 84439; 97110-GP; 97535-GP; J1940; J3490; Q0092